=== PATIENT | female | born 2005 | race Caucasian/White ===

== ENCOUNTER 2024-08-19 19:32 | Emergency (ER) | payer BC, OTHER ==
[~2024-08-19] VITALS: Ht 162.6 cm; Wt 71.5 kg
[2024-08-19 19:40] VITALS: BP 125/73; PULSE 108; RESP 18; TEMP 98.2; O2SAT 99
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
[2024-08-19 20:51] LABS: Urine Bacteria FEW /hpf (None Seen); Urine Blood Negative /uL (Negative); Urine Clarity Clear (Clear); Urine Color Yellow (Yellow); Urine Mucus FEW (None Seen); Urine Protein, UAD 1+ (Negative); Urine Specific Gravity 1.031 (1.001-1.035); Urine Urobilinogen 4 mg/dL (Negative); Urine WBC 1 /hpf (0 - 5); Urine pH 7.5 (5.0-9.0)
[2024-08-19] MEDS ORDERED: IBUP-1456 PO (21:26)
[2024-08-19] MEDS ORDERED: METH-1181 PO (21:26)
== END 2024-08-19 21:38 | disposition home or self-care (01) ==
LOC: ER 19:32
DX: S13.4XXA Sprain of ligaments of cervical spine, initial encounter (principal); S70.11XA Contusion of right thigh, initial encounter; V49.49XA Driver injured in collision with other motor vehicles in traffic accident, initial encounter; Y93.I9 Activity, other involving external motion; Y92.89 Other specified places as the place of occurrence of the external cause; Y99.8 Other external cause status
CPT/HCPCS: 72040; 81001